=== PATIENT | male | born 1955 | race Caucasian/White ===

== ENCOUNTER 2017-03-29 23:00 | Emergency (ER) | payer BC ==
[2017-03-29 23:08] VITALS: BP 154/94; PULSE 65; BMI 32.5
--- NOTE | 2017-03-29 23:18 | PDOC ---
History of Present Illness - General Chief Complaint: Pain, Acute Stated Complaint: LEFT FLANK PAIN Time Seen by Provider: 03/29/17 23:07 History Source: Patient Exam Limitations: No Limitations Past History - Past Medical History Allergies/Adverse Reactions: Allergies Allergy/AdvReac Type Severity Reaction Status Date / Time No Known Allergies Allergy Verified 03/29/17 23:02 Home Medications: Ambulatory Orders Allopurinol [Zyloprim -] 09/23/12 Amlodipine Bes/Olmesartan Med [Yomaira 10-20 mg Tablet] 09/23/12 Atenolol [Tenormin] 25 mg PO DAILY 09/23/12 Oxycodone HCl/Acetaminophen [Percocet 5-325 mg Tablet] 1 - 2 tab PO Q6H PRN #12 tablet 09/23/12 Ondansetron [Zofran *Odt*] 8 mg SL TID #15 od.tablet 03/30/17 Oxycodone HCl/Acetaminophen [Percocet 5-325 mg Tablet] 1 - 2 tab PO Q4H PRN #20 tablet MDD 6 03/30/17 Tamsulosin HCl [Flomax] 0.4 mg PO DAILY #30 cap.er.24h 03/30/17 Diabetes: Yes Disorders: Yes HIV: Yes - Psycho/Social/Smoking Cessation Hx Anxiety: No Suicidal Ideation: No Smoking Status: No Smoking History: Never smoked Have you smoked in the past 12 months: No Number of Cigarettes Smoked Daily: 0 Information on smoking cessation initiated: No Hx Alcohol Use: No Drug/Substance Use Hx: No Substance Use Type: None *Physical Exam - Vital Signs Last Vital Signs Temp Pulse Resp BP Pulse Ox 65 18 154/94 96 03/29/17 23:04 03/29/17 23:04 03/29/17 23:04 03/29/17 23:04 *DC/Admit/Observation/Transfer Diagnosis at time of Disposition: Renal colic on left side - Discharge Dispostion Disposition: HOME Condition at time of disposition: Stable Admit: No - Prescriptions Prescriptions: Tamsulosin HCl [Flomax] 0.4 mg PO DAILY #30 cap.er.24h Oxycodone HCl/Acetaminophen [Percocet 5-325 mg Tablet] 1 - 2 tab PO Q4H PRN #20 tablet MDD 6 PRN Reason: Pain Ondansetron [Zofran *Odt*] 8 mg SL TID #15 od.tablet - Patient Instructions Additional Instructions: For the pain you can take Percocet one or 2 tablets every 4-6 hours as needed. The Percocet will make you drowsy so try limited to the nighttime hours if however if you take it during the daytime hours you should not drive or do anything that requires your concentration. In addition to the Percocet for pain you can take Naprosyn 2 tablets as often as twice a day and also Tylenol 2 tablets every 4-6 hours if needed. Take Flomax 1 tablet a day to keep the urine flowing. If you develop any nausea U can take Flomax 1 tablet every 6-8 hours if needed. Return to the emergency department immediately with ANY new, persistent or worsening symptoms. Continue any medications as previously prescribed by your physician. You should follow up with your primary doctor as soon as possible regarding today's emergency department visit. . Please make sure your doctor reviews the results of your emergency evaluation. Thank you for coming to the Emergency Department today for your care. It was a pleasure to see you today. Please note that your evaluation is INCOMPLETE until you follow-up with your doctor.
[2017-03-29 23:22] LABS: URINE APPEARANCE Clear; URINE BILIRUBIN Negative (NEGATIVE); URINE GLUCOSE (UA) 2+ (NEGATIVE); URINE KETONE Negative (NEGATIVE); URINE LEUK ESTERASE Negative (NEGATIVE); URINE NITRITE Negative (NEGATIVE); URINE PROTEIN Negative (NEGATIVE); URINE UROBILINOGEN 0.2 (0.2-1.0)
[2017-03-29 23:23] LABS: URINE COLOR YELLOW
[2017-03-29 23:29] LABS: URINE BLOOD 2+ (NEGATIVE)
[2017-03-30] MEDS ORDERED: OXYCODONE/APAP 5/325MG COMBO TABLET PO ONE (00:25)
[2017-03-30] MEDS ORDERED: OXYCODONE/APAP 5/325MG COMBO TABLET ONE (00:32)
== END 2017-03-30 00:34 | disposition home or self-care (01) ==
LOC: FER 23:00
DX: N23 Unspecified renal colic (principal); Z21 Asymptomatic human immunodeficiency virus [HIV] infection status; E11.9 Type 2 diabetes mellitus without complications; N39.9 Disorder of urinary system, unspecified
CPT/HCPCS: 74176-TC; 81003; 99281-25